=== PATIENT | male | born 1970 ===

== ENCOUNTER 2018-12-12 14:22 | Outpatient (CLI) | payer OTHER | END 2018-12-12 14:24 | disposition home or self-care (01) | LOC: RAD 14:22 | DX: D34 Benign neoplasm of thyroid gland (principal); Z13.89 Encounter for screening for other disorder; Z41.1 Encounter for cosmetic surgery; Z13.6 Encounter for screening for cardiovascular disorders; Z12.2 Encounter for screening for malignant neoplasm of respiratory organs; Z13.1 Encounter for screening for diabetes mellitus; Z11.3 Encounter for screening for infections with a predominantly sexual mode of transmission; Z00.00 Encounter for general adult medical examination without abnormal findings; Z23 Encounter for immunization; Z91.81 History of falling ==

== ENCOUNTER 2021-12-15 07:25 | Outpatient (CLI) | payer OTHER | END 2021-12-15 07:40 | disposition home or self-care (01) | LOC: RAD 07:25 | PROVIDERS: ATTEND General Practice | DX: R07.9 Chest pain, unspecified (principal); M25.531 Pain in right wrist; M25.521 Pain in right elbow; M54.59 Other low back pain ==

== ENCOUNTER 2023-02-12 08:10 | Outpatient (CLI) | payer OTHER | END 2023-02-12 08:20 | disposition home or self-care (01) | LOC: SONOGRAMA 08:10 | PROVIDERS: ATTEND Urology | DX: D29.1 Benign neoplasm of prostate (principal); N41.1 Chronic prostatitis ==

== ENCOUNTER 2023-11-27 13:50 | Outpatient (CLI) | payer OTHER | END 2023-11-27 14:01 | disposition home or self-care (01) | LOC: SONOGRAMA 13:50 | DX: E04.1 Nontoxic single thyroid nodule (principal) ==